=== PATIENT | male | born 1980 | race Hispanic/Latino ===

== ENCOUNTER 2019-10-29 05:57 | Emergency (ER) | payer SELFPAY ==
[2019-10-29 06:34] LABS: #Basophils 0.1 thou/uL (0.0-0.2); #Eosinphils 0.1 thou/uL (0.0-0.7); #Lymphocytes 4.6 thou/uL (1.20-3.40); #Monocytes 0.7 thou/uL (0.11-0.59); #Neutrophils 5.3 thou/uL (1.40-6.50); %Basophils 1.3 % (0.0-1.0); %Eosinophils 1.2 % (0.0-10.0); %Lymphocytes 42.6 % (21.0-51.0); %Monocytes 6.6 % (0.0-10.0); %Neutrophils 48.3 % (42.0-75.0); Hemoglobin 15.8 g/dL (14.0-18.0); Mean Corpuscular HGB CONC 31.3 g/dL (32.0-36.0); Mean Corpuscular Hemoglobin 31.1 pg (27.0-31.0); Mean Corpuscular Volume 99.5 fL (78.0-98.0); Mean Platelet Volume 8.8 fL (7.4-10.4); Platelet Count 245 thou/uL (130-400); RBC Distribution Width 13.5 % (11.5-14.5); Red Blood Cell (RBC) Count 5.08 mill/uL (4.70-6.10); White Blood Cell (WBC) Count 10.9 thou/uL (4.8-10.8)
[2019-10-29 06:44] LABS: Base Excess-Venous -1.5 mmol/L (-2.0 to 3.0); Bicarbonate (HCO3v) 24.7 mmol/L (22.0-28.0); CO2 Tension (PvCO2) 45.8 mmHg (40.0-50.0); Calcium, Ionized 1.07 mmol/L (See Comments:); Chloride 107 mmol/L (98-107); Hemoglobin - Calc 17.7 g/dL (14.0-18.0); Potassium 3.1 mmol/L (3.5-5.1); Sodium 142 mmol/L (138-145); T. Carbon Dioxide 26.1 mmol/L (22.0-28.0); vO2 Saturation-calc 95.3 % (60.0-85.0)
[2019-10-29 06:45] LABS: ALT (SGPT) 103 U/L (8-55); AST (SGOT) 77 U/L (5-34); Albumin 4.3 g/dL (3.5-5.0); Alkaline Phosphatase 126 U/L (40-110); Anion Gap 17 mmol/L (10-20); BUN (Urea Nitrogen) 7 mg/dL (8.9-20.6); Bilirubin, Total 0.2 mg/dL (0.2-1.2); Calc. Creatinine Clearance 0 mL/min (70-130); Carbon Dioxide 22 mmol/L (22-29); Chloride 105 mmol/L (98-107); Estimated GFR-MDRD Greater than 90; Glucose 178 mg/dL (70-105); Lipase 26 U/L (8-78); Potassium 3.4 mmol/L (3.5-5.1); Protein, Total 8.3 g/dL (6.0-8.3); Sodium 141 mmol/L (136-145)
[2019-10-29 06:46] LABS: Acetaminophen Less than 6.0 mcg/mL (10.0-30.0); Alcohol 244 mg/dL (Less than 10); Salicylate Less than 8.0 mg/dL (15.0-30.0)
--- NOTE | 2019-10-29 08:09 | CT ---
CT ANGIO OF THE CHEST: DATE: 10/29/2019. FINDINGS: Spiral CT of the chest was done for evaluation in this patient with dyspnea. The timing of the bolus is less than optimal yielding a low-sensitivity study. No emboli are seen in the larger pulmonary a rtery branches. Emboli in medium to smaller branches would be missed. There is no sign of aortic di ssection or aneurysm. There is no pericardial effusion. No mediastinal mass or adenopathy of concern was seen. The lungs are clear, except for some dependent atelectasis posteriorly and in the lung ba ses. The liver is large, but no space-occupying disease was seen in it. No adrenal abnormalities we re appreciated. IMPRESSION: 1. Low-sensitivity study showing no emboli in the larger branches. Medium to smaller branch emboli would be missed. 2. Hepatomegaly. Report called to Dr. Niño at 0720 on 10/29/2019. CODE CR POS: HOME
--- NOTE | 2019-10-29 08:10 | RAD ---
PORTABLE CHEST: DATE: 10/29/2019. FINDINGS: An AP portable film at 0629 shows the heart to be normal in size for body habitus. The lungs are hattie ar. No infiltrate, effusion, or edema was seen. An old ORIF of a left clavicular fracture is noted. IMPRESSION: No acute thoracic finding. POS: HOME
[2019-10-29] MEDS ORDERED: Iopamidol 370 76% 100 ML VIAL ONE (11:33)
== END 2019-10-29 08:59 | disposition home or self-care (01) ==
LOC: EDBD 05:57 → BURERS 05:57
DX: R07.9 Chest pain, unspecified (principal); F10.10 Alcohol abuse, uncomplicated; Y90.8 Blood alcohol level of 240 mg/100 ml or more
CPT/HCPCS: 71045; 71275; 80053; 80307; 82330; 82803; 83605; 83690; 84484; 85025; 85379; 93005; Q9967